=== PATIENT | female | born 1975 | race Hispanic/Latino ===

== ENCOUNTER 2021-07-05 20:14 | Emergency (ER) | payer OTHER, SELFPAY ==
[2021-07-05 20:18] VITALS: BP 167/104; PULSE 98; RESP 18; TEMP 36.6; O2SAT 99
[2021-07-05 20:24] VITALS: BP 147/97
[2021-07-05 20:31] VITALS: BP 153/100
[2021-07-05 20:46] VITALS: BP 143/94
[2021-07-05 20:48] VITALS: PULSE 89
[2021-07-05 20:56] LABS: Basophils Percent Auto 0.3 % (0.2-1.2); Eosinophils Percent Auto 0.1 % (0-4.4); Hematocrit 40.7 % (37.0-47.0); Hemoglobin 14.1 g/dL (12.0-15.0); Immature Granulocyte Absolute 0.02 K/mm3 (0.00-0.031); Immature Granulocyte Percent A 0.2 % (0-0.5); Lymphocytes Absolute Auto 2.67 K/mm3 (0.9-3.2); Lymphocytes Percent Auto 30.5 % (18.3-44.2); Mean Corpuscular HGB Conc 34.6 g/dl (32-36); Mean Corpuscular Hemoglobin 32.1 pg (26-34); Mean Corpuscular Volume 92.7 fl (80-100); Mean Platelet Volume 9.3 fl (7.4-10.4); Monocytes Absolute Auto 0.8 K/mm3 (0.1-0.6); Monocytes Percent Auto 9.6 % (2.6-8.5); Neutrophils Absolute Auto 5.2 K/mm3 (1.3-6.7); Neutrophils Percent Auto 59.3 % (45.5-73.1); Platelet Count Result 294 k/mm3 (150-375); Red Blood Count 4.39 M/mm3 (4.2-5.4); Red Cell Distribution Width 12.2 % (11.5-14.5); White Blood Count 8.7 K/mm3 (4.5-10.0)
[2021-07-05 21:06] LABS: Acetaminophen < 10 ug/mL (10-30); Ethanol < 10 mg/dL (<10); Salicylate < 1.0 mg/dL (2-20)
[2021-07-05 21:23] LABS: Alanine Aminotransferase 21 U/L (4-35); Albumin Level 4.7 g/dL (3.5-5.1); Alkaline Phosphatase 58 U/L (38-126); Anion Gap 8 mmol/L (8-16); Aspartate Amino Transferase 33 U/L (14-36); Bilirubin,Total 0.8 mg/dL (0.2-1.3); Blood Urea Nitrogen 7 mg/dL (7-17); Calcium 9.7 mg/dL (8.4-10.2); Carbon Dioxide 29 mmol/L (22-30); Chloride 99 mmol/L (98-107); Estimated CRCL calculation 92 ml/min; Estimated Glomerular Filt Rate > 60; Glucose 123 mg/dL (65-110); Potassium 3.7 mmol/L (3.4-5.0); Sodium 136 mmol/L (137-145)
--- NOTE | 2021-07-05 21:28 | ED.GENADULT ---
HPI - General Adult General Chief complaint: Unspecified <Basia Funes PA-C - Last Filed: 07/06/21 05:16> Stated complaint: Detox from ETOH <Basia Funes PA-C - Last Filed: 07/06/21 05:16> Time Seen by Provider: 07/05/21 20:28 <Basia Funes PA-C - Last Filed: 07/06/21 05:16> Source: patient and family <Basia Funes PA-C - Last Filed: 07/06/21 05:16> Mode of arrival: ambulatory <Basia Funes PA-C - Last Filed: 07/06/21 05:16> Limitations: no limitations <Basia Funes PA-C - Last Filed: 07/06/21 05:16> History of Present Illness HPI narrative: Patient is a 45-year-old female who presents the ED with report of ETOH abuse. Patient reports she has a history of binge drinking every couple months, in which she will drink 10-12 beers a day for 3 days in a row. She expresses feeling depressed and bad about herself when she goes through these binges. She also reports being anxious and jittery in the mornings after drinking. She began drinking in her current binge last Tuesday, 07/01, and reports she drank several beers on , Tuesday, and 2 beers yesterday on Tuesday. She has not drank anything today. She denies any nausea, vomiting, abdominal pain, chest pain, shortness of breath, palpitations, headache, lightheadedness, dizziness, weakness, urinary sx's. Over the past couple nights, she does report having difficulty sleeping. She states she took a normal dose of liquid NyQuil yesterday to try to help her with sleeping. She then took another dose of NyQuil. Her daughter then took the bottle away from her. Patient states she was not trying to harm herself when she was taking the NyQuil, that she just wanted to go to sleep for the night. She does admit having occasional scary and depressed thoughts at times during her alcohol binges. She has never seriously contemplated harming herself or committing suicide or ever thought about how she would attempt to do this. No previous suicide attempts or self-harm. No homicidal ideation. She is otherwise high functioning member of society and lives a relatively healthy lifestyle. She lives with her boyfriend and daughter who is at bedside. She denies ever being diagnosed with anxiety or depression in the past or ever being on medications for these. She does mention having a Hx of alcoholism in several immediate family members. <Basia Funes PA-C - Last Filed: 07/06/21 05:16> Related Data Allergies/adverse reactions: Allergies Allergy/AdvReac Type Severity Reaction Status Date / Time No Known Allergies Allergy Verified 07/05/21 20:48 <Basia Funes PA-C - Last Filed: 07/06/21 05:16> Review of Systems Review of Systems: CONSTITUTIONAL: Denies fever, chills, or sweats. EYES: Denies visual changes. CARDIOVASCULAR: Denies chest pain, palpitations, or edema. RESPIRATORY: Denies cough or dyspnea. GASTROINTESTINAL: Denies abdominal pain, nausea, vomiting, or diarrhea. GENITOURINARY: Denies dysuria or hematuria. MUSCULOSKELETAL: Denies back pain, joint pain. NEUROLOGIC: Denies dizziness, lightheadedness, headache, numbness, or weakness. PSYCHIATRIC: Reports anxiety and depression. <Basia Funes PA-C - Last Filed: 07/06/21 05:16> All systems reviewed & are unremarkable except as noted in HPI and below <Basia Funes PA-C - Last Filed: 07/06/21 05:16> [facility] Past Medical History Medical History: Medical History (Updated 07/06/21 @ 00:03 by Basia Funes PA-C) No pertinent past medical history <Basia Funes PA-C - Last Filed: 07/06/21 05:16> Surgical History Surgical History: Surgical History (Updated 07/05/21 @ 21:30 by Basia Funes PA-C) History of inguinal hernia repair, bilateral <Basia Funes PA-C - Last Filed: 07/06/21 05:16> Social History Social History: Social History (Updated 07/05/21 @ 21:31 by Basia Funes PA-C) Smoking status: Current some day smoker Tobacco type
[2021-07-05 21:38] LABS: Add Urine Microscopic? YES; Appearance Urine Clear (Clear); Bilirubin Urine Negative (Negative); Blood Urine 2+ (Negative); Color Urine Yellow (Yellow); Glucose Urine UA Negative (Negative); Ketones Urine Negative (Negative); Leukocyte Esterase Ur Negative LEU/UL (Negative); Nitrate Urine Negative (Negative); Protein Urine Negative (Negative); RBC Urine 0-2 /hpf (0-2); Squamous Epithelial Cell Urine Few /hpf (Few); Urobilinogen Urine Negative mg/dL (<2.0); WBC Urine 0-3 /hpf
[2021-07-05 21:39] LABS: Specific Grav Ur 1.003 (1.001-1.035)
[2021-07-05 21:51] LABS: Amphetamine Screen Urine Negative (Negative); Barbiturate Screen Urine Negative (Negative); Benzodiazepines Screen Urine Negative (Negative); Cannabinoid Screen Urine Negative (Negative); Cocaine Screen Urine Negative (Negative); Methadone Screen Urine Negative (Negative); Opiate Screen Urine Negative (Negative); Phencyclidine Screen Urine Negative (Negative)
--- NOTE | 2021-07-05 22:12 | PC.NURSE ---
Per ED MD Palomares, pt DOES NOT need a sitter and does not require suicide precautions. However, pt is depressed and having scary thoughts per BRENT Flor. ED MD Palomares requests that crisis be notified for pt assessment.
[2021-07-05 22:21] VITALS: BP 132/68; PULSE 74; RESP 16; O2SAT 99
[2021-07-05 22:51] LABS: SARS-CoV-2 RNA PCR Negative
--- NOTE | 2021-07-05 23:08 | PC.NURSE ---
Report received from SYL Pabon. This RN assumed care of patient at this time.
[2021-07-05 23:10] LABS: Free T4 Free Thyroxine 1.11 ng/mL (0.78-2.19)
--- NOTE | 2021-07-05 23:18 | PC.NURSE ---
Crisis in room with patient at this time.
[2021-07-06 00:42] VITALS: BP 131/90; PULSE 90; RESP 17; TEMP 36.5; O2SAT 99
== END 2021-07-06 00:38 | disposition home or self-care (01) ==
PROVIDERS: Physician Assistant; Emergency Provider Emergency Medicine
DX: F10.10 Alcohol abuse, uncomplicated (principal); F32.A Depression, unspecified; Z20.822 Contact with and (suspected) exposure to COVID-19; F17.210 Nicotine dependence, cigarettes, uncomplicated; Y90.0 Blood alcohol level of less than 20 mg/100 ml
CPT/HCPCS: 36415; 80053; 80307; 81001; 84439; 84443; 85025; 99284; C9803; U0003; U0005

== ENCOUNTER 2023-12-13 02:35 | Emergency (ER) | payer OTHER, SELFPAY ==
[2023-12-13 02:36] VITALS: BP 137/95; PULSE 96; RESP 16; TEMP 36.5; O2SAT 97
--- NOTE | 2023-12-13 03:41 | PC.NURSE ---
pt to intake desk I think I am going to go. Pt ambulatory with steady gait to exit. no distress noted.
== END 2023-12-13 04:03 | disposition left against medical advice (07) ==
LOC: ANHED 03:53
DX: F41.9 Anxiety disorder, unspecified (principal)
CPT/HCPCS: 99199

== ENCOUNTER 2023-12-13 06:37 | Emergency (ER) | payer BC, SELFPAY ==
--- NOTE | ~2023-12-13 | XR_ITS ---
Clinical Indication: Anxious PA and lateral views of the chest: Comparison: None Findings: The lungs are clear, without evidence of focal consolidation or pleural effusion. Cardiome diastinal silhouette is within normal limits. Bones and soft tissues are unremarkable. Impression: Normal chest. Reviewed, dictated and finalized at location . Impression: Normal chest.
[2023-12-13 06:49] VITALS: BP 135/91; PULSE 92; RESP 15; TEMP 36.7; O2SAT 99
[2023-12-13 07:13] VITALS: BP 133/85; PULSE 97; RESP 15; O2SAT 97
--- NOTE | 2023-12-13 07:16 | ECG_ITS ---
Test Date: 2023-12-13 07:30:03 Measurements Intervals [place] Rate: 87 P: 63 NH: 136 QRS: -7 QRSD: 86 T: 28 QT: 342 QTc: 412 Interpretive Statements SINUS RHYTHM POSSIBLE RIGHT VENTRICULAR CONDUCTION DELAY [RSR (QR) IN V1/V2] MODERATE VOLTAGE CRITERIA FOR LVH, CONSIDER NORMAL VARIANT [MEETS CRITERIA IN ONE OF: R(aVL), S(V1), R(V5), R(V5/V6)+S(V1)] No previous ECG available for comparison Electronically Signed On 12-13-2023 15:44:10 CDT by Cristopher Monson M.D.
[2023-12-13 07:38] LABS: BEDSIDEPREGUCG Negative
[2023-12-13 07:39] LABS: Glucose Point of Care 128 mg/dl (65-105)
[2023-12-13 07:54] LABS: Alanine Aminotransferase 20 U/L (6-35); Albumin Level 4.6 g/dL (3.5-5.1); Alkaline Phosphatase 58 U/L (38-126); Anion Gap 12 mmol/L (4-12); Aspartate Amino Transferase 32 U/L (14-36); Bilirubin,Total 0.9 mg/dL (0.2-1.3); Blood Urea Nitrogen 7 mg/dL (7-17); Calcium 9.5 mg/dL (8.4-10.2); Carbon Dioxide 26 mmol/L (22-30); Chloride 93 mmol/L (98-107); Estimated CRCL calculation 90 ml/min; Estimated Glomerular Filt Rate > 60; Glucose 125 mg/dL (65-110); Potassium 3.5 mmol/L (3.4-5.0); Sodium 131 mmol/L (137-145)
[2023-12-13 07:58] LABS: Basophils Percent Auto 0.3 % (0.2-1.2); Hematocrit 42.5 % (37.0-47.0); Hemoglobin 14.6 g/dL (12.0-15.0); Immature Granulocyte Absolute 0.02 K/mm3 (0.00-0.031); Immature Granulocyte Percent A 0.2 % (0-0.5); Lymphocytes Absolute Auto 1.86 K/mm3 (0.9-3.2); Mean Corpuscular HGB Conc 34.4 g/dl (32-36); Mean Corpuscular Hemoglobin 31.5 pg (26-34); Mean Corpuscular Volume 91.8 fl (80-100); Mean Platelet Volume 9.1 fl (7.4-10.4); Monocytes Absolute Auto 0.6 K/mm3 (0.1-0.6); Monocytes Percent Auto 5.6 % (2.6-8.5); Neutrophils Absolute Auto 7.3 K/mm3 (1.3-6.7); Neutrophils Percent Auto 74.9 % (45.5-73.1); Platelet Count Result 273 k/mm3 (150-375); Red Blood Count 4.63 M/mm3 (4.2-5.4); Red Cell Distribution Width 11.9 % (11.5-14.5); White Blood Count 9.8 K/mm3 (4.5-10.0)
[2023-12-13 08:00] LABS: Add Urine Microscopic? YES; Appearance Urine Clear (Clear); Bacteria Urine None Seen /hpf; Bilirubin Urine Negative (Negative); Blood Urine 1+ (Negative); Color Urine Yellow (Yellow); Glucose Urine UA Negative (Negative); Ketones Urine Trace mg/dL (Negative); Leukocyte Esterase Ur Trace LEU/UL (Negative); Need Manual Microscopic Reviewed; Nitrate Urine Negative (Negative); Non Pathogenic Casts 0-2; Protein Urine Negative (Negative); Specific Grav Ur 1.004 (1.001-1.035); Squamous Epithelial Cell Urine None Seen /hpf (Few); Urobilinogen Urine 0.2 mg/dL (<2.0); WBC Urine 0-5 /hpf (0-3); pH Urine 6.5 (5.0-9.0)
[2023-12-13 08:02] LABS: Ethanol < 10 mg/dL (<10)
[2023-12-13 08:04] LABS: Amphetamine Screen Urine Negative (Negative); Barbiturate Screen Urine Negative (Negative); Benzodiazepines Screen Urine Negative (Negative); Cannabinoid Screen Urine Negative (Negative); Cocaine Screen Urine Negative (Negative); Methadone Screen Urine Negative (Negative); Opiate Screen Urine Negative (Negative); Phencyclidine Screen Urine Negative (Negative)
--- NOTE | 2023-12-13 08:16 | ED.ANXIETY ---
HPI - Anxiety General Chief Complaint: Anxiety Stated Complaint: anxiety Time Seen by Provider: 12/13/23 07:14 History of Present Illness HPI narrative: This is a 47-year-old otherwise healthy female who presents to the emergency department for evaluation anxiety. Patient states she had a binge drinking episode this past weekend when she was drinking to 4 glasses of wine a day. Her last drink was 2 days prior. She states that she normally does not have binge drinking episodes and her last episode was over 10 months prior. She states at that time her sodium got low and she required hospitalization. She states she feels anxious about her drinking has alcoholism runs in her family. Presently she is awake alert oriented denies any systemic features such as headache, vision change, nausea, vomiting, fever, chills, shakiness, weakness and neuropathy. She was previously in her normal state of health but states that she felt so bad this morning she did not want to go to work and wants to be evaluated. She denies any suicidal or homicide ideations and has no plan to conduct such. She does not wish to be seen by Psychiatry crisis and just wants to get electrolytes evaluated to make sure she does not have an issue that resembles her previous admission. Related Data Home Medications Medication Instructions Recorded Confirmed atorvastatin 40 mg tablet mg 12/13/23 norethindrone 1 mg-ethinyl tablet 12/13/23 estradiol 20 mcg (21)-iron 75 mg (7) tablet ([place] Fe 05/07 (28)) Allergies Allergy/AdvReac Type Severity Reaction Status Date / Time No Known Allergies Allergy Verified 12/13/23 02:41 Review of Systems Review of Systems: As reviewed above in HPI [facility] Past Medical History Medical History No pertinent past medical history Surgical History Surgical History History of inguinal hernia repair, bilateral Social History Social History Smoking status: Current some day smoker Tobacco type: cigarettes Alcohol intake: current Alcohol use details: binge drinking Substance use: never Substance use type: does not use Living arrangements: with friend(s) Occupation/Education: occupation Exam Narrative: GENERAL: [Well-appearing, well-nourished, and in no acute distress.] HEAD: [Normocephalic, atraumatic.] EYES: [PERRLA and EOMI.] ENT: Nares clear, no rhinorrhea or epistaxis. Mucous membranes moist. No tongue fasciculations NECK: Supple. CHEST: [Clear to auscultation. No respiratory distress.] HEART: [Regular rate and rhythm]. No murmur heard. [Normal peripheral pulses.] ABDOMEN: [Soft, nondistended], [nontender], [No rigidity or guarding] EXTREMITIES: Normal range of motion. [No edema.] SKIN: Warm, dry, no rash. NEURO: [No focal deficits]. Alert and oriented [x3.] No tremor, does not appear anxious, no tongue fasciculations. No ataxia. PSYCH: [Normal mood and affect.] Course Vital Signs Vital signs: Vital Signs Temperature 36.7 C 12/13/23 06:49 Pulse Rate 92 12/13/23 06:49 Respiratory Rate 15 12/13/23 06:49 Blood Pressure 135/91 H 12/13/23 06:49 Pulse Oximetry 99 12/13/23 06:49 Oxygen Delivery Room Air 12/13/23 06:49 Temperature 36.7 C 12/13/23 06:49 Pulse Rate 91 12/13/23 09:30 Respiratory Rate 16 12/13/23 09:30 Blood Pressure 135/86 12/13/23 09:30 Pulse Oximetry 98 12/13/23 09:30 Oxygen Delivery Room Air 12/13/23 06:49 MDM - Anxiety MDM Narrative Medical decision making narrative: This is a 47-year-old female who has a history of binge drinking episodes who presents to the emergency department after binge drinking episode this past weekend. She states she feels anxious and wants to get evaluated to make sure her electrolytes are not abnormal. She was otherwise in her normal state of health and denies any history of alcohol use disorder. She has a history of alcoholism that runs in the family. She states her last drink was 2 days ago and has never had any kind withdrawal symptoms from stopping alcohol suddenly. She does not drink daily. She has normal reassuring vital signs via tachycardia, hypertension, hypotension, tachypnea, hypoxia or fever. Clinically she is well appearing not in any acute distress hold conversation regularly without any slurring of her speech or tremors, ataxia. She has an unremarkable examination. Workup was ordered including electrolyte panel, CBC, chest x-ray, EKG. Patient denies any chance of . Urinalysis was ordered. Patient politely declines being evaluated by psychiatry and crisis. Patient is not a danger to herself or others at this time and has no suicidal ideations or homicidal ideations and no active plan I do not believe needs to be evaluated by Psychiatry emergently, but would recommend her follow up on outpatient basis with some counseling versus psychiatric outpatient clinic visit. Patient's workup showed no leukocytosis or anemia. Sodium of of 131 and chloride of 93 respectively. Potassium was within normal limits. Normal renal function panel. Normal glucose and normal hepatic function. Normal TSH. Chest x-ray was independently reviewed by myself and interpreted by radiology with no acute findings. EKG with normal rate rhythm an axis with no ST segment changes concerning for ischemic or interval anomalies. Patient was re-evaluated and felt improved after fluids. I once again offered her counseling for her alcohol use and binge drinking episodes but she politely declined. She was given additional fluids, oral hydration and tolerated this well. She was stable for discharge home at this time. Medical Records Attestation: I reviewed the patient's medical records. Lab Data Attestation: I reviewed the patient's lab results. 12/13/23 07:34 12/13/23 07:34 Labs: Lab Results 12/13/23 12/13/23 Range/Units 07:33 07:34 WBC 9.8 (4.5-10.0) K/mm3 RBC 4.63 (4.2-5.4) M/mm3 Hgb 14.6 (12.0-15.0) g/dL Hct 42.5 (37.0-47.0) % MCV 91.8 (80-100) fl MCH 31.5 (26-34) pg MCHC 34.4 (32-36) g/dl RDW 11.9 (11.5-14.5) % Plt Count 273 (150-375) k/mm3 MPV 9.1 (7.4-10.4) fl Immature Gran % (Auto) 0.2 (0-0.5) % Neut % (Auto) 74.9 H (45.5-73.1) % Lymph % (Auto) 19.0 (18.3-44.2) % [place] % (Auto) 5.6 (2.6-8.5) % Eos % (Auto) 0.0 (0-4.4) % Baso % (Auto) 0.3 (0.2-1.2) % Lymph # (Auto) 1.86 (0.9-3.2) K/mm3 [place] # (Auto) 0.6 (0.1-0.6) K/mm3 Eos # (Auto) 0.0 (0-0.3) K/mm3 Baso # (Auto) 0.0 (0.0-0.1) K/mm3 Abs Immat Gran (auto) 0.02 (0.00-0.031) K/mm3 Absolute Neuts (auto) 7.3 H (1.3-6.7) K/mm3 Absolute Nucleated RBC 0.000 (0.0-0.012) K/mm3 Nucleated RBC % 0.0 (0.0-0.2) % Sodium 131 L (137-145) mmol/L Potassium 3.5 (3.4-5.0) mmol/L Chloride 93 L (98-107) mmol/L Carbon Dioxide 26 (22-30) mmol/L Anion Gap 12 (4-12) mmol/L BUN 7 (7-17) mg/dL Creatinine 0.60 L (0.7-1.0) mg/dL Estim Creat Clear Calc 90 ml/min Estimated GFR > 60 (59 - ) Glucose 125 H (65-110) mg/dL POC Capillary Glucose 128 H (65-105) mg/dl Calcium 9.5 (8.4-10.2) mg/dL Total Bilirubin 0.9 (0.2-1.3) mg/dL AST 32 (14-36) U/L ALT 20 (6-35) U/L Alkaline Phosphatase 58 (38-126) U/L Total Protein 8.0 (6.3-8.2) g/dL Albumin 4.6 (3.5-5.1) g/dL TSH 2.230 (0.465-4.680) uIU/mL Urine Color Yellow (Yellow) Urine Appearance Clear (Clear) Urine pH 6.5 (5.0-9.0) Ur Specific [place] 1.004 (1.001-1.035) Urine Protein Negative (Negative) mg/dL Urine Glucose (UA) Negative (Negative) mg/dL Urine Ketones Trace H (Negative) mg/dL Ur Blood (Man) 1+ H (Negative) Urine Nitrate Negative (Negative) Urine Bilirubin Negative (Negative) Urine Urobilinogen 0.2 (<2.0) mg/dL Add Ur Microanalysis Reviewed Leukocyte Esterase Rfl Trace H (Negative) MEENA/UL Urine RBC 3-5 H (0-2) /hpf Urine WBC 0-5 (0-3) /hpf Ur Squamous Epith Cells None seen (Few) /hpf Urine Bacteria None seen /hpf Urine Casts 0-2 POC Urine HCG, Qual Negative POC Ur Preg QC Yes Urine Opiates Screen Negative (Negative) Urine Methadone Screen Negative (Negative) Ur Barbiturates Screen Negative (Negative) Ur Phencyclidine Scrn Negative (Negative) Ur Amphetamine Screen Negative (Negative) U Benzodiazepines Scrn Negative (Negative) Urine Cocaine Screen Negative (Negative) U Cannabinoids Screen Negative (Negative) Ethyl Alcohol < 10 (<10) mg/dL Imaging Data Attestation: I personally reviewed and interpreted this imaging study as follows: Radiologist's impression: Impressions Chest X-Ray 12/13/23 07:52 Impression: Normal chest. Discharge Plan Discharge Clinical Impression: Alcohol consumption binge drinking Patient Disposition: Home, Self-Care Condition: Stable Instructions: Antibiotic Form, Anxiety (ED) Prescriptions: No Action atorvastatin 40 mg tablet norethindrone-e.estradiol-iron [[place] Fe 05/07 (28)] 1 mg-20 mcg (21)/75 mg (7) tablet Follow-up/Referrals: PHYSICIAN NOT ON STAFF,NONSTAFF [Non-Staff] - Time of Disposition: 10:33
[2023-12-13] MEDS: SODIUM CHLORIDE 0.9% IV 1,000 ML 999 ML IV CONT ×2 (08:53→10:03)
[2023-12-13 08:54] VITALS: BP 135/98; PULSE 93; RESP 14; O2SAT 98
[2023-12-13 09:30] VITALS: BP 135/86; PULSE 91; RESP 16; O2SAT 98
[2023-12-13 10:04] VITALS: BP 131/90; PULSE 86; RESP 15; O2SAT 96
--- NOTE | 2023-12-13 10:55 | PC.NURSE ---
pt requesting medications to help with sleep. EDP made aware.
== END 2023-12-13 10:57 | disposition home or self-care (01) ==
PROVIDERS: Emergency Provider Student in an Organized Health Care Education/Training Program
DX: F10.10 Alcohol abuse, uncomplicated (principal); Y90.0 Blood alcohol level of less than 20 mg/100 ml; F17.210 Nicotine dependence, cigarettes, uncomplicated; F41.9 Anxiety disorder, unspecified
CPT/HCPCS: 36415; 71046; 80053; 80307; 81001; 81025; 82948; 84443; 85025; 93005; 96360; 96361; 99283; J7030